=== PATIENT | female | born 1975 | race Caucasian/White ===

== ENCOUNTER → 2023-09-23 07:43 | Outpatient (REF) | payer OTHER, SELFPAY | LOC: WDC 07:43 | PROVIDERS: ATTENDING PHYSICIAN Obstetrics & Gynecology | DX: R92.8 Other abnormal and inconclusive findings on diagnostic imaging of breast (principal) | CPT/HCPCS: 76642 ==

== ENCOUNTER → 2024-03-19 11:02 | Outpatient (REF) | payer OTHER, SELFPAY | LOC: WDC 11:02 | PROVIDERS: ATTENDING PHYSICIAN Obstetrics & Gynecology; FAMILY PHYSICIAN Family Medicine | DX: Z12.31 Encounter for screening mammogram for malignant neoplasm of breast (principal) | CPT/HCPCS: 77063; 77067 ==

== ENCOUNTER → 2024-03-25 14:52 | Outpatient (REF) | payer OTHER, SELFPAY | LOC: WDC 14:52 | PROVIDERS: ATTENDING PHYSICIAN Obstetrics & Gynecology | DX: R92.8 Other abnormal and inconclusive findings on diagnostic imaging of breast (principal) | CPT/HCPCS: 76642 ==

== ENCOUNTER → 2024-10-21 08:25 | Outpatient (REF) | payer OTHER, SELFPAY | LOC: WDC 08:25 | PROVIDERS: ATTENDING PHYSICIAN Obstetrics & Gynecology; FAMILY PHYSICIAN Family Medicine | DX: R92.8 Other abnormal and inconclusive findings on diagnostic imaging of breast (principal) | CPT/HCPCS: 76642 ==

== ENCOUNTER → 2025-03-24 08:28 | Outpatient (REF) | payer BC, SELFPAY | LOC: WDC 08:28 | PROVIDERS: ATTENDING PHYSICIAN Obstetrics & Gynecology; FAMILY PHYSICIAN Family Medicine | DX: Z12.31 Encounter for screening mammogram for malignant neoplasm of breast (principal) | CPT/HCPCS: 77063; 77067 ==